=== PATIENT | female | born 1995 | race Caucasian/White ===

== ENCOUNTER 2017-05-05 01:59 | Emergency (ER) | payer OTHER ==
[~2017-05-05 01:59] MED LIST: AMOXICILLIN875 MG PO; FLEXERIL10 MG PO; KEFLEX500 MG PO; NAPROSYN500 MG PO; PERCOCET 5/31 TABLET PO; PNV PRENATAL P1 EACH PO; XULANE PATCH1 EACH TD; ZOFRAN ODT4 MG PO; ZOFRAN4 MG PO
[2017-05-05] MEDS ORDERED: FLEXERIL10 MG PO (03:29)
[2017-05-05] MEDS ORDERED: NAPROXEN500 MG PO (03:39)
[2017-05-05] MEDS ORDERED: PERCOCET 5/31 TABLET PO (03:44)
== END 2017-05-05 03:56 | disposition home or self-care (01) ==
LOC: EME 01:59
DX: S46.912A Strain of unspecified muscle, fascia and tendon at shoulder and upper arm level, left arm, initial encounter (principal); X50.0XXA Overexertion from strenuous movement or load, initial encounter
CPT/HCPCS: 73030; 99281; 99283

== ENCOUNTER 2017-05-29 17:37 | Emergency (ER) | payer OTHER ==
[~2017-05-29] VITALS: Ht 165.1 cm; Wt 71.4 kg
[~2017-05-29 17:37] MED LIST changes: +NAPROXEN500 MG PO
[2017-05-29] MEDS ORDERED: NAPROSYN500 MG PO (19:08)
[2017-05-29] MEDS ORDERED: ULTRAM50 MG PO (19:28)
[2017-05-29 19:33] VITALS: BP 136/99
== END 2017-05-29 19:47 | disposition home or self-care (01) ==
LOC: EME 17:37
DX: M54.12 Radiculopathy, cervical region (principal); F17.200 Nicotine dependence, unspecified, uncomplicated
CPT/HCPCS: 73080; 99281; 99284